=== PATIENT | female | born 1955 | race Two or more races ===

== ENCOUNTER 2020-02-12 07:05 | Outpatient (CLI) | payer OTHER | END 2020-02-12 07:13 | disposition home or self-care (01) | LOC: NUCLEAR 07:05 | PROVIDERS: ATTEND Internal Medicine | DX: K80.00 Calculus of gallbladder with acute cholecystitis without obstruction (principal) | CPT/HCPCS: 78227; A9537; J2805 ==

== ENCOUNTER 2024-11-20 09:45 | Outpatient (CLI) | payer OTHER | END 2024-11-20 09:47 | disposition home or self-care (01) | LOC: SONOGRAMA 09:45 | DX: R10.9 Unspecified abdominal pain (principal) ==

== ENCOUNTER 2024-11-24 08:09 | Outpatient (CLI) | payer OTHER | END 2024-11-24 08:12 | disposition home or self-care (01) | LOC: TOM 08:09 | PROVIDERS: ATTEND Internal Medicine | DX: R10.30 Lower abdominal pain, unspecified (principal); N13.39 Other hydronephrosis | CPT/HCPCS: 74178; Q9965 ==